=== PATIENT | female | born 1950 | race African-American/Black ===

== ENCOUNTER 2017-10-25 12:51 | Inpatient (IN) | payer MEDICARE, OTHER ==
[~2017-10-25] VITALS: Ht 162.6 cm; Wt 92.5 kg
[2017-10-25] MEDS ORDERED: ENALAPRILAT DIHYDRATE 1.25 MG/1 ML VIAL IV ONE ×2 (13:00→13:31)
[2017-10-25] MEDS ORDERED: FUROSEMIDE 20 MG/2 ML VIAL IV ONE (13:00)
[2017-10-25] MEDS ORDERED: ASPIRIN 325 MG TABLET PO ONE (13:00)
[2017-10-25] MEDS ORDERED: NITROGLYCERIN OINT 1 GM PACKET TP ONE ×2 (13:00→13:30)
[2017-10-25 13:11] LABS: BASOPHILS # (AUTO) 0.1 K/uL (0.0-8.0); BASOPHILS % (AUTO) 0.8 % (0.0-2.0); EOSINOPHILS # (AUTO) 0.3 K/uL (0.0-0.7); EOSINOPHILS % (AUTO) 4.7 % (0.0-7.0); HEMATOCRIT 35.8 % (31.2-41.9); LYMPHOCYTES # (AUTO) 2.1 K/uL (20.0-40.0); LYMPHOCYTES % (AUTO) 28.3 % (20.5-51.5); MEAN CORPUSCULAR HEMOGLOBIN 29.1 uug (24.7-32.8); MEAN CORPUSCULAR HGB CONC 33 g/dL (32.3-35.6); MEAN CORPUSCULAR VOLUME 87.1 fL (75.5-95.3); MONOCYTES # (AUTO) 0.4 K/uL (2.0-10.0); MONOCYTES % (AUTO) 6.1 % (0.0-11.0); NEUTROPHILS # (AUTO) 4.4 K/uL (1.8-8.9); NEUTROPHILS % (AUTO) 60.1 % (38.5-71.5); PLATELET COUNT (AUTO) 261 K/uL (179-408); RED BLOOD CELL COUNT(AUTO) 4.11 MIL/uL (3.63-4.92); WHITE BLOOD COUNT (AUTO) 7.3 K/uL (3.8-11.8)
[2017-10-25 13:20] LABS: CREATININE 0.9 mg/dL (0.6-1.3); POTASSIUM 4.3 mmol/L (3.5-5.1)
[2017-10-25] MEDS ORDERED: ASPIRIN 325 MG TABLET ONE (13:30)
[2017-10-25] MEDS ORDERED: FUROSEMIDE 40 MG/4 ML VIAL ONE (13:30)
[2017-10-25 13:33] LABS: BILIRUBIN,DIRECT 0.1 mg/dL (0.0-0.2); BILIRUBIN,TOTAL 0.2 mg/dL (0.2-1.0); TOTAL PROTEIN, SERUM 7.2 g/dL (6.4-8.2)
--- NOTE | 2017-10-25 14:05 | NUR ---
Patient ambulated to bathroom with slow steady gait, unassisted. Patient said "I feel so much better."
--- NOTE | 2017-10-25 14:47 | NUR ---
Patient is AOx4, c/o severe headaches, MD notified with orders
[2017-10-25] MEDS ORDERED: DIAZ10TA4 PO (14:49)
[2017-10-25] MEDS ORDERED: HYDR-4077 PO (14:49)
[2017-10-25] MEDS ORDERED: CARV25TA PO (14:49)
[2017-10-25] MEDS ORDERED: HYDR25TA4 PO (14:49)
[2017-10-25] MEDS ORDERED: OXYC30TA2 PO (14:49)
[2017-10-25] MEDS ORDERED: CITA20TA11 PO (14:49)
[2017-10-25] MEDS ORDERED: ONDANSETRON 4 MG/2 ML VIAL ONE (15:02)
[2017-10-25] MEDS ORDERED: MORPHINE SULFATE 4 MG/1 ML DISP.SYRIN ONE (15:02)
--- NOTE | 2017-10-25 15:11 | NUR ---
Patient was assisted to the bedside commode 3x. Patient said, "I want to be independent."-Patient was assisted accordingly.
[2017-10-25] MEDS ORDERED: ONDANSETRON IV *ER 4 MG/2 ML VIAL IV ONE (15:15)
[2017-10-25] MEDS ORDERED: MORPHINE SULFATE 4 MG/1 ML DISP.SYRIN IV ONE (15:15)
--- NOTE | 2017-10-25 15:27 | NUR ---
Receiving client from ER.
[2017-10-25 16:14] VITALS: BP 113/105
[2017-10-25 17:22] VITALS: BP 171/89
[2017-10-25] MEDS ORDERED: Medication Not On Formulary EA (Oxycodone Hcl 30 MG) PO SCH (17:30)
[2017-10-25 17:55] VITALS: BP 183/83
[2017-10-25] MEDS ORDERED: CARVEDILOL 25 MG TABLET PO SCH (18:00)
[2017-10-25] MEDS ORDERED: MAGNESIUM HYDROXIDE 30 ML LIQUID UDC PO PRN (18:30)
[2017-10-25] MEDS ORDERED: ONDANSETRON 4 MG/2 ML VIAL IV PRN (18:30)
[2017-10-25] MEDS ORDERED: MORPHINE SULFATE 2 MG/1 ML DISP.SYRIN IV PRN (18:30)
[2017-10-25] MEDS ORDERED: ALBUTEROL SULFATE 2.5 MG/3 ML NEBU NEB PRN (18:45)
[2017-10-25] MEDS ORDERED: MORPHINE SULFATE 4 MG/1 ML DISP.SYRIN IV PRN (19:15)
--- NOTE | 2017-10-25 19:18 | NUR ---
CLIENT IS AWAKE, ALERT AND ORIENTED TIMES 3. BP MEDICATION GIVEN ORDERED. ADMISSION PACKAGE DONE. MONITORING PAIN LEVELS, DR GAGE. DINNER PROVIDED FOR THE CLIENT. CLIENT AMBULATES WITH WALKER BUT ASSISTANCE BACKUP RECOMMENDED. BED AT LOWEST POSITION FOE SAFETY AND CALL LIGHT WITHIN REACH FOR ASSISTANCE. CLIENT IS NOTED WITH LEFT SIDE WEAKNESS
--- NOTE | 2017-10-25 19:30 | NUR ---
PT ALERT, AWAKE AND ORIENTED. IV INTACT AND PATENT. PT HAS LEFT SIDED WEAKNESS. BLURRED VISION ON BOTH EYES. NEED ASSISTANCE IN AMBULATION. CALL LIGHT WITHIN REACH. BED ALARM ON. WILL CONTINUE TO MONITOR.
[2017-10-25 20:00] VITALS: BP 146/84
[2017-10-25] MEDS: DOCUSATE SODIUM 100 MG CAPSULE PO SCH (21:14)
[2017-10-25] MEDS: CARVEDILOL 25 MG TABLET PO SCH (21:15)
[2017-10-25] MEDS: DIAZEPAM 10 MG TABLET PO SCH (21:15)
[2017-10-25] MEDS: hydrALAZINE HCL 50 MG TABLET PO SCH (22:08)
[2017-10-25] MEDS: HYDROCODONE/APAP 5-325MG TABLET PO PRN (22:25)
[2017-10-26] VITALS (7 sets, daily range): BP systolic 134–168; BP diastolic 46–84
[2017-10-26] MEDS: ENALAPRILAT DIHYDRATE INJ 2.5 MG in IV NORMAL SALINE 50 ML IV PRN (05:12)
[2017-10-26] MEDS: hydrALAZINE HCL 50 MG TABLET PO SCH ×3 (05:46→21:50)
[2017-10-26] MEDS: PANTOPRAZOLE SODIUM 40 MG TABLET.DR PO SCH (06:23)
--- NOTE | 2017-10-26 06:25 | NUR ---
PT SLEPT T/O THE SHIFT. SHOWS NO SIGNS OF DISTRESS.BP STILL HIGH. MEDICATION GIVEN. SAFETY AND COMFORT PROVIDED.
[2017-10-26 07:02] LABS: BILIRUBIN,TOTAL 0.2 mg/dL (0.2-1.0); CREATININE 0.9 mg/dL (0.6-1.3); MAGNESIUM 1.9 mg/dL (1.8-2.4); PHOSPHOROUS 4.4 mg/dL (2.5-4.9); POTASSIUM 4.6 mmol/L (3.5-5.1); TOTAL PROTEIN, SERUM 6.7 g/dL (6.4-8.2)
--- NOTE | 2017-10-26 07:10 | NUR ---
Received client in bed sleeping with no apparent signs and symptoms of SOB. Easily arousable. Bed at lowest position for safety, call light within reach for assistance. Noted with 4L of O2 via NC.
[2017-10-26 07:31] LABS: THYROID STIMULATING HORMONE 1.002 mIU/mL (0.358-3.740)
[2017-10-26 07:43] LABS: BASOPHILS % (AUTO) 0.4 % (0.0-2.0); EOSINOPHILS # (AUTO) 0.3 K/uL (0.0-0.7); EOSINOPHILS % (AUTO) 4.2 % (0.0-7.0); HEMATOCRIT 36.7 % (31.2-41.9); HEMOGLOBIN 12.1 g/dL (10.9-14.3); LYMPHOCYTES % (AUTO) 31.1 % (20.5-51.5); MEAN CORPUSCULAR HEMOGLOBIN 29.3 uug (24.7-32.8); MEAN CORPUSCULAR HGB CONC 33 g/dL (32.3-35.6); MEAN CORPUSCULAR VOLUME 88.8 fL (75.5-95.3); MONOCYTES # (AUTO) 0.5 K/uL (2.0-10.0); NEUTROPHILS # (AUTO) 3.6 K/uL (1.8-8.9); NEUTROPHILS % (AUTO) 56.3 % (38.5-71.5); PLATELET COUNT (AUTO) 268 K/uL (179-408); RED BLOOD CELL COUNT(AUTO) 4.13 MIL/uL (3.63-4.92); WHITE BLOOD COUNT (AUTO) 6.3 K/uL (3.8-11.8)
--- NOTE | 2017-10-26 08:00 | NUR ---
OT evaluation done as ordered
[2017-10-26] MEDS: HYDROCODONE/APAP 5-325MG TABLET PO PRN ×2 (08:52→20:00)
[2017-10-26] MEDS: CITALOPRAM 20 MG TABLET PO SCH (08:52)
[2017-10-26] MEDS: CARVEDILOL 25 MG TABLET PO SCH ×2 (08:52→20:19)
[2017-10-26] MEDS: HYDROCHLOROTHIAZIDE 25 MG TABLET PO SCH (09:01)
[2017-10-26] MEDS: ACETAMINOPHEN 325 MG TABLET PO PRN (10:12)
[2017-10-26] MEDS ORDERED: KETOROLAC TROMETHAMINE 30 MG INJ IVP PRN (10:30)
--- NOTE | 2017-10-26 12:00 | NUR ---
PT evaluation noted and is suggest with PT through hospital stay and after discharge. Also suggested by PT to have client be assisted to RR. Also informed that client has a foot drop. Noted with left side weakness on both the left upper extremity and the left lower extremity.
[2017-10-26] MEDS ORDERED: KETOROLAC TROMETHAMINE 15 MG INJ IVP PRN (12:15)
--- NOTE | 2017-10-26 18:42 | NUR ---
BP SBP > 10. Vasotec ordered through pharmacy.Two bags will be made to give, one as soon as possible the next one in case needed during the night
--- NOTE | 2017-10-26 19:47 | NUR ---
Client has been compliant with all nursing care. All medications tolerated well and given as ordered. Client noted to rest and sleep through the shift. No more headache according to the patient after Toradol given. Bed at lowest position for safety and call light within reach for assistance
--- NOTE | 2017-10-26 19:48 | NUR ---
Received pt awake on bed. Pt IV intact and patent. PT has swollen right arm and bruises at the right side of the back. sitter on bedside.bed alarm on and in low position and side rails up. will continue to monitor. Addendum: 10/27/17 at 0027 by SUZI DEVLIN RN error- wrong pt
--- NOTE | 2017-10-26 19:48 | NUR ---
RECEIVED PT AWAKE,ALERT AND ORIENTED. PT IV INTACT AND PATENT. CALL LIGHT WITHIN REACH AND BED ALARM ON.
[2017-10-26] MEDS: DOCUSATE SODIUM 100 MG CAPSULE PO SCH (20:18)
[2017-10-26] MEDS: DIAZEPAM 10 MG TABLET PO SCH (20:19)
[2017-10-27] VITALS: BP 157/76
[2017-10-27] MEDS: ENALAPRILAT DIHYDRATE INJ 2.5 MG in IV NORMAL SALINE 50 ML IV PRN (02:24)
[2017-10-27 04:00] VITALS: BP 161/80
[2017-10-27] MEDS: hydrALAZINE HCL 50 MG TABLET PO SCH ×2 (05:17→15:03)
[2017-10-27] MEDS: PANTOPRAZOLE SODIUM 40 MG TABLET.DR PO SCH (06:22)
--- NOTE | 2017-10-27 06:41 | NUR ---
PT SLEPT THROUGHOUT THE SHIFT. PT SHOWS NO SIGNS OF DISTRESS. PT BP HIGH. PROVIDED MEDICATION PRESCRIBED BY THE DOCTOR. CALL LIGHT WITHIN REACH. BED ALARM ON AND IN LOW POSITION. SAFETY AND COMFORT PROVIDED.
--- NOTE | 2017-10-27 08:00 | NUR ---
PATIENT IN BED WITH HOB ELEVATED. NO S/S OF DISTRESS, MEADE OR DIZZINESS. CLOSELY MONITORED FOR HIGH BLOOD PRESSURE.
[2017-10-27] MEDS: CITALOPRAM 20 MG TABLET PO SCH (08:42)
[2017-10-27] MEDS: HYDROCHLOROTHIAZIDE 25 MG TABLET PO SCH (08:43)
[2017-10-27] MEDS: CARVEDILOL 25 MG TABLET PO SCH ×2 (08:44→20:20)
[2017-10-27] MEDS: ACETAMINOPHEN 325 MG TABLET PO PRN (10:01)
[2017-10-27] MEDS: HYDROCODONE/APAP 5-325MG TABLET PO PRN ×2 (10:47→20:20)
[2017-10-27 11:37] VITALS: BP 162/83
--- NOTE | 2017-10-27 12:00 | NUR ---
PLAN D/C TO ACUTE REHAB. AWAITING ORDERS AND STAFFING ASSOCIATE DECISION. FAMILY MADE AWARE OF THE PLAN.
[2017-10-27] MEDS ORDERED: AMLODIPINE 10 MG TABLET PO SCH (12:45)
--- NOTE | 2017-10-27 17:25 | NUR ---
PATIENT'S BLOOD PRESSURE CLOSELY MONITORED AND HAS NO COMPLAINTS OF PAIN. PATIENT REMAINED COMPLIANT TO ALL CARE.
[2017-10-27] MEDS ORDERED: OXYC20TA58 PO (17:43)
[2017-10-27] MEDS ORDERED: ACET325T53 PO (17:43)
[2017-10-27] MEDS ORDERED: AMLO10TA2 PO (17:43)
[2017-10-27] MEDS ORDERED: MAGN400O6 PO (17:43)
[2017-10-27] MEDS ORDERED: HYDR-3326 PO (17:43)
[2017-10-27] MEDS ORDERED: MULT1TAB73 PO (17:43)
[2017-10-27] MEDS ORDERED: HYDR50TA68 PO (17:43)
[2017-10-27] MEDS ORDERED: PANT40TA2 PO (17:43)
[2017-10-27] MEDS ORDERED: CARV25TA2 PO (17:43)
[2017-10-27] MEDS ORDERED: DOCU100C36 PO (17:43)
[2017-10-27] MEDS ORDERED: ALBU2.5V7 IH (18:18)
[2017-10-27] MEDS ORDERED: FLUT1BLS IH (18:18)
[2017-10-27] MEDS ORDERED: IPRA0.2S6 NEB (18:18)
[2017-10-27] MEDS: DIAZEPAM 10 MG TABLET PO SCH (20:19)
[2017-10-27] MEDS: DOCUSATE SODIUM 100 MG CAPSULE PO SCH (20:19)
[2017-10-27 20:20] VITALS: BP 180/93
--- NOTE | 2017-10-27 21:00 | NUR ---
PT TRANSFERRED TO ACUTE REHAB, REPORT GIVEN TO RECEIVING NURSE. ALL 2100 MEDS ADMINISTERED ORDERED
== END 2017-10-27 21:19 | DRG 292 ==
LOC: ER 12:51 → TELE 15:16
PROVIDERS: ADMIT Internal Medicine; ATTEND Internal Medicine
DX: I11.0 Hypertensive heart disease with heart failure (principal); I69.354 Hemiplegia and hemiparesis following cerebral infarction affecting left non-dominant side; D68.59 Other primary thrombophilia; I27.20 Pulmonary hypertension, unspecified; I07.1 Rheumatic tricuspid insufficiency; J44.1 Chronic obstructive pulmonary disease with (acute) exacerbation; J98.11 Atelectasis; I50.31 Acute diastolic (congestive) heart failure; Z74.09 Other reduced mobility; E66.9 Obesity, unspecified; Z68.35 Body mass index [BMI] 35.0-35.9, adult; H35.52 Pigmentary retinal dystrophy; Z88.0 Allergy status to penicillin; H54.8 Legal blindness, as defined in USA; F17.210 Nicotine dependence, cigarettes, uncomplicated; M19.90 Unspecified osteoarthritis, unspecified site; G43.909 Migraine, unspecified, not intractable, without status migrainosus; Z79.899 Other long term (current) drug therapy
CPT/HCPCS: 36415; 70030-TC; 71045; 83605; 83735; 84100; 84443; 85025; 85730; 87040; 92523; 92526; 92610; 93005; 93307; 97116; 97165; 97530; 97535; A4663; J1885; J1940; J2270; J2405; J3490; J7050

== ENCOUNTER 2021-09-29 13:06 | Emergency (ER) | payer MEDICARE, OTHER ==
[~2021-09-29] VITALS: Ht 162.6 cm; Wt 86.2 kg
[~2021-09-29 13:06] MED LIST: ACET325T53 PO; ALBU2.5V7 IH; AMLO10TA59 PO; CARV25TA2 PO; CITA20TA16 PO; DIAZ10TA4 PO; DOCU100C36 PO; FLUT1BLS IH; HYDR-3326 PO; HYDR25TA4 PO; HYDR50TA68 PO; IPRA0.2S6 NEB; MAGN400O6 PO; MULT-594 PO; OXYC20TA58 PO; PANT40TA2 PO
[2021-09-29] MEDS ORDERED: HYDROCODONE/APAP 5-325MG TABLET PO ONE (13:30)
[2021-09-29] MEDS ORDERED: HYDROCODONE/APAP 5-325MG TABLET ONE (13:31)
--- NOTE | 2021-09-29 13:40 | NUR ---
PT UNABLE TO RECALL CURRENT MEDICATIONS AND DOSAGES.
--- NOTE | 2021-09-29 14:01 | NUR ---
Pt out of ER for CT.
--- NOTE | 2021-09-29 14:25 | NUR ---
Pt back from Ct, resting in bed.
[2021-09-29 17:07] VITALS: BP 165/88
[2021-09-29] MEDS ORDERED: HYDR-4209 PO (17:11)
--- NOTE | 2021-09-29 17:29 | NUR ---
Patient discharged to home in stable condition. Written and verbal after care instructions given. Patient and pt's daughter verbalize understanding of instructions. Stressed follow up or return to ER for worsening s/s.
== END 2021-09-29 17:29 | disposition home or self-care (01) ==
LOC: ER 13:06
DX: S52.502A Unspecified fracture of the lower end of left radius, initial encounter for closed fracture (principal); S92.352A Displaced fracture of fifth metatarsal bone, left foot, initial encounter for closed fracture; W01.0XXA Fall on same level from slipping, tripping and stumbling without subsequent striking against object, initial encounter; Y92.010 Kitchen of single-family (private) house as the place of occurrence of the external cause; E66.9 Obesity, unspecified; Z68.32 Body mass index [BMI] 32.0-32.9, adult; I69.354 Hemiplegia and hemiparesis following cerebral infarction affecting left non-dominant side; J45.909 Unspecified asthma, uncomplicated; I10 Essential (primary) hypertension; Z79.899 Other long term (current) drug therapy
CPT/HCPCS: 70450; 73110; 73130; 73562; 73610; 73630; A4663